=== PATIENT | male | born 1990 | race American Indian/Alaskan Native ===

== ENCOUNTER 2017-05-17 16:07 | Inpatient (IN) | payer MEDICAID ==
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
--- NOTE | 2017-05-17 17:53 | RAD ---
HISTORY: pes eval COMPARISON: None available. TECHNIQUE: Chest, one view. FINDINGS: Examination limited by patient obliquity. LUNGS: No focal consolidation. Please note that chest x-ray has limited sensitivity for the detection of pulmonary masses. PLEURA: No significant pleural effusion identified. No definite pneumothorax . CARDIOVASCULAR: The cardiomediastinal silhouette appears within normal limits of size. OSSEOUS STRUCTURES: No acute osseous abnormality identified. VISUALIZED UPPER ABDOMEN: Unremarkable. OTHER FINDINGS: None. IMPRESSION: No focal consolidation, significant pleural effusion, or definite pneumothorax identified.
[2017-05-17 18:28] LABS: URINE BILIRUBIN NEGATIVE (NEGATIVE); URINE BLOOD SMALL (NEGATIVE); URINE GLUCOSE (UA) NEGATIVE (NEGATIVE); URINE KETONE NEGATIVE (NEGATIVE); URINE LEUKOCYTE ESTERASE NEGATIVE Leu/uL (NEGATIVE); URINE PROTEIN TRACE mg/dL (<30 mg/dL)
[2017-05-17 18:29] LABS: BASO # 0.03 K/mm3 (0.0-2.0); BASO % 0.5 % (0.0-3.0); EOS # 0.1 (0.0-0.7); EOS % 0.8 % (1.5-5.0); GRAN # 4.08 (1.4-6.5); GRAN % 68.5 % (50.0-68.0); HEMATOCRIT 40.2 % (42.0-52.0); LYMPH # 1.6 (1.2-3.4); LYMPH % 26.2 % (22.0-35.0); MEAN CELL VOLUME 94.1 fl (80.0-105.0); MEAN CORPUSCULAR HEMOGLOBIN 32.1 pg (25.0-35.0); MEAN CORPUSCULAR HGB CONC 34.1 g/dl (31.0-37.0); MEAN PLATELET VOLUME 11.4 fl (7.0-11.0); MONO # 0.2 (0.1-0.6); RED CELL DISTRIBUTION WIDTH 12.5 % (11.5-14.5)
[2017-05-17 18:34] LABS: ALB/GLOB RATIO 1.3 (1.1-1.8); ALKALINE PHOSPHATASE 55 U/L (38-126); ALT/SGPT 29 U/L (7-56); AST/SGOT 30 U/L (17-59); BILIRUBIN,TOTAL 0.6 mg/dL (0.2-1.3); BLOOD UREA NITROGEN 13 mg/dL (7-21); CALCIUM 9.1 mg/dL (8.4-10.5); CARBON DIOXIDE 25 mmol/L (21-33); CHLORIDE 107 mmol/L (98-107); GFR AFRICAN-AMERICAN > 60; GLUCOSE,RANDOM 85 mg/dL (70-110); POTASSIUM 3.1 mmol/L (3.6-5.0); SODIUM 144 mmol/L (132-148); TOTAL PROTEIN 7.8 g/dL (5.8-8.3)
[2017-05-17 18:35] LABS: URINE APPEARANCE CLEAR (CLEAR); URINE COLOR YELLOW (YELLOW)
[2017-05-17 19:37] LABS: URINE BACTERIA FEW (NEG); URINE WBC 0 - 2 /hpf (0-6)
--- NOTE | 2017-05-17 19:44 | CARD ---
APPROVED REPORT EKG Measurement Heart [id number] <Conclusion> Normal sinus rhythm Possible Left atrial enlargement Rightward axis Left ventricular hypertrophy with QRS widening T wave abnormality, consider anterior ischemia Abnormal ECG
[2017-05-17] MEDS ORDERED: Potassium Chloride 20 mEq ER Tab PO STA (22:16)
--- NOTE | 2017-05-18 01:36 | ED PDOC ---
Physical Exam Vital Signs Reviewed: Yes Vital Signs Temp Pulse Resp BP Pulse Ox 05/17/17 23:45 86 18 141/68 96 05/17/17 20:25 64 18 118/78 98 05/17/17 18:09 97.4 F L 70 18 124/84 97 Temperature: Afebrile Blood Pressure: Normal Pulse: Regular Respiratory Rate: Normal Appearance: Positive for: Comfortable Pain Distress: None Mental Status: Positive for: Agitated, other (alert) Medical Decision Making ED Course and Treatment: 05/18/17 01:36 Pending PES evaluation with Dr. Pablo in the morning. - Lab Interpretations Lab Results: 05/17/17 17:57 05/17/17 17:57 Lab Results 05/17/17 18:05: Urine Opiates Screen Negative, Urine Methadone Screen Negative, Ur Barbiturates Screen Negative, Ur Phencyclidine Scrn No result, Ur Amphetamines Screen Negative, U Benzodiazepines Scrn Negative, U Oth Cocaine Metabols Negative, U Cannabinoids Screen Positive H 05/17/17 18:05: Urine Color Yellow, Urine Appearance Clear, Urine pH 6.0, Ur Specific [place] 1.010, Urine Protein Trace H, Urine Glucose (UA) Negative, Urine Ketones Negative, Urine Blood Small H, Urine Nitrate Negative, Urine Bilirubin Negative, Urine Urobilinogen 1.0 H, Ur Leukocyte Esterase Negative, Urine RBC 5 - 10, Urine WBC 0 - 2, Ur Epithelial Cells None, Urine Bacteria Few 05/17/17 17:57: Alcohol, Quantitative 108 H 05/17/17 17:57: Salicylates < 1 L, Acetaminophen < 10.0 L 05/17/17 17:57: Sodium 144, Potassium 3.1 L, Chloride 107, Carbon Dioxide 25, Anion Gap 15, BUN 13, Creatinine 0.9, Est GFR ( Amer) > 60, Est GFR (Non- Af Amer) > 60, Random Glucose 85, Calcium 9.1, Total Bilirubin 0.6, AST 30, ALT 29, Alkaline Phosphatase 55, Total Protein 7.8, Albumin 4.3, Globulin 3.4, Albumin/Globulin Ratio 1.3 05/17/17 17:57: WBC 6.0, RBC 4.27, Hgb 13.7 L, Hct 40.2 L, MCV 94.1, MCH 32.1, MCHC 34.1, RDW 12.5, Plt Count 178, MPV 11.4 H, Gran % 68.5 H, Lymph % (Auto) 26.2, [place] % (Auto) 4.0, Eos % (Auto) 0.8 L, Baso % (Auto) 0.5, Gran # 4.08, Lymph # 1.6, [place] # 0.2, Eos # 0.1, Baso # 0.03 I have reviewed the lab results: Yes - RAD Interpretation Radiology Orders: 05/17/17 17:10 CHEST PORTABLE [RAD] Stat - Medication Orders Current Medication Orders: Discontinued Medications Potassium Chloride (K-Dur 20 Meq Er Tab) 40 meq PO STAT STA Stop: 05/17/17 22:17 Ziprasidone (Geodon Inj) 20 mg IM STAT STA PRN Reason: Protocol Stop: 05/17/17 16:43 Last Admin: 05/17/17 16:50 Dose: 20 mg IM Administration Charges Document 05/17/17 16:50 SF (Rec: 05/17/17 17:13 SF [id number]) Injection Site MAR Injection Site Left Vastus Lateralis Charges for Administration # of IM Administrations 1 - Scribe Statement The provider has reviewed the documentation as recorded by the Lurdes Ndiaye Provider Scribe Attestation: All medical record entries made by the Scribe were at my direction and personally dictated by me. I have reviewed the chart and agree that the record accurately reflects my personal performance of the history, physical exam, medical decision making, and the department course for this patient. I have also personally directed, reviewed, and agree with the discharge instructions and disposition. Disposition/Present on Arrival - Present on Arrival Any Indicators Present on Arrival: No History of DVT/PE: No History of Uncontrolled Diabetes: No Urinary Catheter: No History of Decub. Ulcer: No History Surgical Site Infection Following: None - Disposition Referrals: [facility], [Primary Care Provider] - Follow up with primary Forms: MedWhat (Citizen Of [place])
--- NOTE | 2017-05-18 07:33 | ED PDOC ---
Physical Exam Vital Signs Reviewed: Yes Vital Signs Temp Pulse Resp BP Pulse Ox 05/18/17 06:09 75 16 149/82 96 05/18/17 04:25 74 16 124/67 97 05/18/17 01:41 88 16 134/68 98 05/17/17 23:45 86 18 141/68 96 05/17/17 20:25 64 18 118/78 98 05/17/17 18:09 97.4 F L 70 18 124/84 97 Temperature: Afebrile Blood Pressure: Normal Pulse: Regular Respiratory Rate: Normal Appearance: Positive for: Well-Appearing Pain Distress: None Mental Status: Positive for: Alert and Oriented X 3 Medical Decision Making ED Course and Treatment: 05/18/17 07:25 Patient transferred to vt by Dr. Ahumada. Currently pending psychiatric evaluation. 05/18/17 9:[address] Woodward to f/u psych evaluation. - Lab Interpretations Lab Results: 05/17/17 17:57 05/17/17 17:57 Lab Results 05/17/17 18:05: Urine Opiates Screen Negative, Urine Methadone Screen Negative, Ur Barbiturates Screen Negative, Ur Phencyclidine Scrn No result, Ur Amphetamines Screen Negative, U Benzodiazepines Scrn Negative, U Oth Cocaine Metabols Negative, U Cannabinoids Screen Positive H 05/17/17 18:05: Urine Color Yellow, Urine Appearance Clear, Urine pH 6.0, Ur Specific [place] 1.010, Urine Protein Trace H, Urine Glucose (UA) Negative, Urine Ketones Negative, Urine Blood Small H, Urine Nitrate Negative, Urine Bilirubin Negative, Urine Urobilinogen 1.0 H, Ur Leukocyte Esterase Negative, Urine RBC 5 - 10, Urine WBC 0 - 2, Ur Epithelial Cells None, Urine Bacteria Few 05/17/17 17:57: Alcohol, Quantitative 108 H 05/17/17 17:57: Salicylates < 1 L, Acetaminophen < 10.0 L 05/17/17 17:57: Sodium 144, Potassium 3.1 L, Chloride 107, Carbon Dioxide 25, Anion Gap 15, BUN 13, Creatinine 0.9, Est GFR ( Amer) > 60, Est GFR (Non- Af Amer) > 60, Random Glucose 85, Calcium 9.1, Total Bilirubin 0.6, AST 30, ALT 29, Alkaline Phosphatase 55, Total Protein 7.8, Albumin 4.3, Globulin 3.4, Albumin/Globulin Ratio 1.3 05/17/17 17:57: WBC 6.0, RBC 4.27, Hgb 13.7 L, Hct 40.2 L, MCV 94.1, MCH 32.1, MCHC 34.1, RDW 12.5, Plt Count 178, MPV 11.4 H, Gran % 68.5 H, Lymph % (Auto) 26.2, [place] % (Auto) 4.0, Eos % (Auto) 0.8 L, Baso % (Auto) 0.5, Gran # 4.08, Lymph # 1.6, [place] # 0.2, Eos # 0.1, Baso # 0.03 - RAD Interpretation Radiology Orders: 05/17/17 17:10 CHEST PORTABLE [RAD] Stat - Medication Orders Current Medication Orders: Discontinued Medications Potassium Chloride (K-Dur 20 Meq Er Tab) 40 meq PO STAT STA Stop: 05/17/17 22:17 Last Admin: 05/18/17 02:37 Dose: Not Given Non-Admin Reason: Patient Refused Ziprasidone (Geodon Inj) 20 mg IM STAT STA PRN Reason: Protocol Stop: 05/17/17 16:43 Last Admin: 05/17/17 16:50 Dose: 20 mg IM Administration Charges Document 05/17/17 16:50 SF (Rec: 05/17/17 17:13 SF [id number]) Injection Site MAR Injection Site Left Vastus Lateralis Charges for Administration # of IM Administrations 1 - Scribe Statement The provider has reviewed the documentation as recorded by the Lurdes Dozier Provider Scribe Attestation: All medical record entries made by the Lurdes were at my direction and personally dictated by me. I have reviewed the chart and agree that the record accurately reflects my personal performance of the history, physical exam, medical decision making, and the department course for this patient. I have also personally directed, reviewed, and agree with the discharge instructions and disposition. Disposition/Present on Arrival - Present on Arrival Any Indicators Present on Arrival: No History of DVT/PE: No History of Uncontrolled Diabetes: No Urinary Catheter: No History of Decub. Ulcer: No History Surgical Site Infection Following: None - Disposition Have Diagnosis and Disposition been Completed?: No Diagnosis: Psychiatric care Disposition Time: 09:00 Patient Problems: Current Active Problems Problem Status Onset Psychiatric care Acute Condition: GOOD
[2017-05-18 11:05] VITALS: O2SAT 99
[2017-05-18] MEDS ORDERED: Influenza Vaccine 60 mcg/0.5 mL SYR (4YR UP) IM ONE (14:09)
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
--- NOTE | 2017-05-18 15:56 | PCM.BM ---
<Dwight Campo - Last Filed: 05/18/17 15:52> Treatment Plan Problems - Problems identified on initial assessmt Altered Thought Process Date Initiated: 05/18/17 Time Initiated: 15:53 Assessment reference: NA Status: Active Priority: 1 Ineffective Coping Date Initiated: 05/18/17 Time Initiated: 15:54 Assessment reference: NA Status: Active Priority: 2 Treatment assets and liabiliti Patient Assests: cooperative, ADL independent, good interpersonal skills Patient Liabilities: financial problems, poor support system, other (homeless) - Milieu Protocol Maintain good personal hygiene: daily Encourage regular showers, daily Remind patient to perform daily oral care Conduct patient checks and document Observation sheet: Q15 minutes Maintain personal safety: every shift Educate patient to report safety concerns to staff, every shift Monitor environment for contraband/sharps Medication safety: Monitor for expected outcome, potential side effects: every shift, Assess barriers to learning: every shift, Assess readiness for medication education: every shift Discharge/Continuing Care - Education Needs Education Needs: Patient Medication, Patient Diagnosis/Disease Process, Patient Coping Skills, Patient Anger Management skills, Patient Placement options, Patient Community resources, Patient Health Practices/Safety, Patient Aftercare Safety Plan - Discharge Discharge Criteria: Free of Suicidal thoughts, Free of Homicidal thoughts <Luci Becker - Last Filed: 05/18/17 16:29> Family Contact Family involvement: Famliy/SO not involved Family contact: Patient declines to allow family contact at present <Astrid Pablo - Last Filed: 05/19/17 16:32> - Diagnosis (1) Unspecified psychosis Status: Suspected Interventions: 05/19/17 16:31 Psychoeducation/psychotherapy Psychopharmacology/adjustment of medications as needed/ monitoring possible side effects Evaluate pt on daily basis Compliance with medications and follow up appointments Long acting medication if pt is noncompliant with pill form Suicide and homicide risk assessment and prevention, coping strategies, safety plan Relapse prevention Reduction of symptoms Improve functional status Possible assertive community treatment Cognitive behavioral therapy Family involvement Possible social skill training as outpatient (2) Cannabis abuse Status: Acute Interventions: 05/19/17 16:32 Monitoring withdrawal symptoms Medical detoxification Pharmacotherapy for alcohol/benzos/opioid dependence Maintaining sobriety Relapse prevention Possible rehabilitation Motivational interviewing 12-step programs: AA meetings
--- NOTE | 2017-05-18 17:54 | ED PDOC ---
Physical Exam Vital Signs Temp Pulse Resp BP Pulse Ox 05/18/17 11:04 98.0 F 82 18 132/67 99 05/18/17 10:00 84 18 130/71 97 05/18/17 07:45 98.5 F 84 16 133/83 96 05/18/17 06:09 75 16 149/82 96 05/18/17 04:25 74 16 124/67 97 05/18/17 01:41 88 16 134/68 98 05/17/17 23:45 86 18 141/68 96 05/17/17 20:25 64 18 118/78 98 05/17/17 18:09 97.4 F L 70 18 124/84 97 Medical Decision Making ED Course and Treatment: Patient care transferred to tn, pending psychiatric evaluation. Patient to be admitted to [facility] as per PES worker. Patient medically cleared. - Lab Interpretations Lab Results: 05/17/17 17:57 05/17/17 17:57 Lab Results 05/17/17 18:05: Urine Opiates Screen Negative, Urine Methadone Screen Negative, Ur Barbiturates Screen Negative, Ur Phencyclidine Scrn No result, Ur Amphetamines Screen Negative, U Benzodiazepines Scrn Negative, U Oth Cocaine Metabols Negative, U Cannabinoids Screen Positive H 05/17/17 18:05: Urine Color Yellow, Urine Appearance Clear, Urine pH 6.0, Ur Specific [place] 1.010, Urine Protein Trace H, Urine Glucose (UA) Negative, Urine Ketones Negative, Urine Blood Small H, Urine Nitrate Negative, Urine Bilirubin Negative, Urine Urobilinogen 1.0 H, Ur Leukocyte Esterase Negative, Urine RBC 5 - 10, Urine WBC 0 - 2, Ur Epithelial Cells None, Urine Bacteria Few 05/17/17 17:57: Alcohol, Quantitative 108 H 05/17/17 17:57: Salicylates < 1 L, Acetaminophen < 10.0 L 05/17/17 17:57: Sodium 144, Potassium 3.1 L, Chloride 107, Carbon Dioxide 25, Anion Gap 15, BUN 13, Creatinine 0.9, Est GFR ( Amer) > 60, Est GFR (Non- Af Amer) > 60, Random Glucose 85, Calcium 9.1, Total Bilirubin 0.6, AST 30, ALT 29, Alkaline Phosphatase 55, Total Protein 7.8, Albumin 4.3, Globulin 3.4, Albumin/Globulin Ratio 1.3 11/28/17 17:57: WBC 6.0, RBC 4.27, Hgb 13.7 L, Hct 40.2 L, MCV 94.1, MCH 32.1, MCHC 34.1, RDW 12.5, Plt Count 178, MPV 11.4 H, Gran % 68.5 H, Lymph % (Auto) 26.2, [place] % (Auto) 4.0, Eos % (Auto) 0.8 L, Baso % (Auto) 0.5, Gran # 4.08, Lymph # 1.6, [place] # 0.2, Eos # 0.1, Baso # 0.03 - RAD Interpretation Radiology Orders: 05/17/17 17:10 CHEST PORTABLE [RAD] Stat - Medication Orders Current Medication Orders: Folic Acid (Folic Acid) 1 mg PO DAILY [facility] Last Admin: 05/18/17 14:56 Dose: 1 mg Multivitamins (Thera Tab) 1 tab PO 0800 [facility] Nicotine (Nicoderm Cq) 1 patch TD DAILY [facility] Last Admin: 05/18/17 14:15 Dose: 1 patch MAR Transdermal Patch Site Document 05/18/17 14:15 DC (Rec: 05/18/17 16:57 DC [id number]) Transdermal Patch Site Transdermal Patch Site Left Shoulder Thiamine HCl (Vitamin B1 Tab) 100 mg PO DAILY [facility] Last Admin: 05/18/17 14:56 Dose: 100 mg Trazodone HCl (Desyrel) 50 mg PO HS [facility] Ziprasidone (Geodon Inj) 20 mg IM Q6H PRN; Protocol PRN Reason: Agitation Discontinued Medications Potassium Chloride (K-Dur 20 Meq Er Tab) 40 meq PO STAT STA Stop: 05/17/17 22:17 Last Admin: 05/18/17 02:37 Dose: Not Given Non-Admin Reason: Patient Refused Ziprasidone (Geodon Inj) 20 mg IM STAT STA PRN Reason: Protocol Stop: 05/17/17 16:43 Last Admin: 05/17/17 16:50 Dose: 20 mg IM Administration Charges Document 05/17/17 16:50 SF (Rec: 05/17/17 17:13 SF [id number]) Injection Site MAR Injection Site Left Vastus Lateralis Charges for Administration # of IM Administrations 1 Disposition/Present on Arrival - Present on Arrival Any Indicators Present on Arrival: No History of DVT/PE: No History of Uncontrolled Diabetes: No Urinary Catheter: No History of Decub. Ulcer: No History Surgical Site Infection Following: None - Disposition Have Diagnosis and Disposition been Completed?: Yes Diagnosis: Psychiatric care Disposition: HOSPITALIZED Disposition Time: 09:00 Patient Problems: Current Active Problems Problem Status Onset Psychiatric care Acute Unspecified psychosis Acute Cannabis abuse Acute Condition: STABLE
[2017-05-18 19:46] VITALS: BMI 17.9
[2017-05-19 08:23] LABS: CHOLESTEROL 164 mg/dL (130-200); GLUCOSE,FASTING 93 mg/dL (65-110)
[2017-05-19 09:13] LABS: THYROID STIMULATING HORMONE 0.35 mIU/mL (0.46-4.68)
[2017-05-19] MEDS: Multivitamin Therapeutic Tab PO SCH (09:23)
[2017-05-19] MEDS ORDERED: Potassium Chloride 20 mEq ER Tab PO ONE (10:23)
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
--- NOTE | 2017-05-19 16:39 | PCM.PYCHPN ---
Psychiatric Progress Note - Psychiatric Progress Note Patient seen today, length of contact: 30min Patient Chief Complaint: "I am not good in my head" Medical Problems: none Diagnostic Results: 05/17/17 17:57 05/19/17 11:58 Lab Results 05/19/17 11:58: Potassium 4.1 05/19/17 07:45: Free T4 1.00, TSH 3rd Generation 0.35 L 05/19/17 07:45: Fasting Glucose 93, Triglycerides 74, Cholesterol 164, LDL Cholesterol Direct 104, HDL Cholesterol 42 05/17/17 18:05: Urine Opiates Screen Negative, Urine Methadone Screen Negative, Ur Barbiturates Screen Negative, Ur Phencyclidine Scrn No result, Ur Amphetamines Screen Negative, U Benzodiazepines Scrn Negative, U Oth Cocaine Metabols Negative, U Cannabinoids Screen Positive H 05/17/17 18:05: Urine Color Yellow, Urine Appearance Clear, Urine pH 6.0, Ur Specific [place] 1.010, Urine Protein Trace H, Urine Glucose (UA) Negative, Urine Ketones Negative, Urine Blood Small H, Urine Nitrate Negative, Urine Bilirubin Negative, Urine Urobilinogen 1.0 H, Ur Leukocyte Esterase Negative, Urine RBC 5 - 10, Urine WBC 0 - 2, Ur Epithelial Cells None, Urine Bacteria Few 05/17/17 17:57: Alcohol, Quantitative 108 H 05/17/17 17:57: Salicylates < 1 L, Acetaminophen < 10.0 L 05/17/17 17:57: Sodium 144, Potassium 3.1 L, Chloride 107, Carbon Dioxide 25, Anion Gap 15, BUN 13, Creatinine 0.9, Est GFR ( Amer) > 60, Est GFR (Non- Af Amer) > 60, Random Glucose 85, Calcium 9.1, Total Bilirubin 0.6, AST 30, ALT 29, Alkaline Phosphatase 55, Total Protein 7.8, Albumin 4.3, Globulin 3.4, Albumin/Globulin Ratio 1.3 05/17/17 17:57: WBC 6.0, RBC 4.27, Hgb 13.7 L, Hct 40.2 L, MCV 94.1, MCH 32.1, MCHC 34.1, RDW 12.5, Plt Count 178, MPV 11.4 H, Gran % 68.5 H, Lymph % (Auto) 26.2, [place] % (Auto) 4.0, Eos % (Auto) 0.8 L, Baso % (Auto) 0.5, Gran # 4.08, Lymph # 1.6, [place] # 0.2, Eos # 0.1, Baso # 0.03 Vital Signs Temp Pulse Resp BP Pulse Ox 05/19/17 06:56 98.1 F 71 19 124/76 99 05/18/17 16:00 60 140/80 05/18/17 11:04 98.0 F 82 18 132/67 99 05/18/17 10:00 84 18 130/71 97 05/18/17 07:45 98.5 F 84 16 133/83 96 05/18/17 06:09 75 16 149/82 96 05/18/17 04:25 74 16 124/67 97 05/18/17 01:41 88 16 134/68 98 05/17/17 23:45 86 18 141/68 96 05/17/17 20:25 64 18 118/78 98 05/17/17 18:09 97.4 F L 70 18 124/84 97 DSM 5 Symptoms Update: shortly patient is 27 year old -[place] male, 1 previous psychiatric admission to this unit, patient claiming multiple suicidal attempts, not known history of true suicidal attempts, patient has history of cannabis abuse and dependence as well as alcohol abuse, chronic noncompliance with her medications as well as follow-up appointments, patient does not work, homeless, no family support, patient was brought by police for evaluation of disorganized as well as agitated behavior in the community, patient was in restraint in the emergency room, needed to be medicated, at the morning time patient was offered admission patient was in agreement with that plan. Patient was seen at the TV room, pt is dramatic, was shaking but only when this commercial lines underwriter talked to him, earlier, was watching TV without any distress. pt said "I am not good in my head", was pointing towards his forehead. pt reported that he hears voices, but pt does not appear to be internally preoccupied. as per staff pt is compliant with unit rules and regulations. no agitation or aggression Mental status examination: Patient presented to have poor personal hygiene, good ADLs, intermittent eye contact, patient seems to be restless, speech was overproductive, but not pressured. Mood described: "Not good", affect was reactive, mood incongruent, thought processes circumstantial, thought content: Patient reported auditory hallucinations, but patient did not present to be psychotic, patient reported that he wants to harm himself, denied thoughts of harming others, aside and judgment are limited impulses are unpredictable. Impression: substance induced psychosis cannabis abuse alcohol abuse/dependence? r/o malingering treatment plan: Milieu/structure/supportive therapy Medical consult appreciated, see medical team note for more detailed info SW consultation for discharge plan and social issues multivitamins, thiamine, folic acid When necessary medication for possible agitation Trazodone at the nighttime as needed for insomnia Med management Family involvement Follow up on labs Will monitor closely SW evaluation for d/c planning Pt was educated about risk/benefits and alternatives of medications, coping strategies (safety plan, suicide prevention), relapse prevention, importance of follow up with psychiatrist and therapist, stay away from drugs/alcohol/smoking Medication Change: Yes Medical Record Reviewed: Yes Consults ordered or reviewed: med consult appreciated Mental Status Examination - Homicidal Ideation Homicidal Ideation: No Goal/Treatment Plan - Goal/Treatment Plan Need for Continued Stay: Remain at risks for inpatient hospitalization, Severe depression anxiety, Discharge may exacerbated symptoms, Severe functional impairment Estimated Date of D/C: 05/21/17
[2017-05-20] MEDS: Multivitamin Therapeutic Tab PO SCH (09:13)
--- NOTE | 2017-05-20 13:01 | PCM.PYCHPN ---
Psychiatric Progress Note - Psychiatric Progress Note Patient seen today, length of contact: 30min Patient Chief Complaint: "I am fine " Medical Problems: none Diagnostic Results: 05/17/17 17:57 05/19/17 11:58 Lab Results 05/19/17 11:58: Potassium 4.1 05/19/17 07:45: Free T4 1.00, TSH 3rd Generation 0.35 L 05/19/17 07:45: Fasting Glucose 93, Triglycerides 74, Cholesterol 164, LDL Cholesterol Direct 104, HDL Cholesterol 42 05/17/17 18:05: Urine Opiates Screen Negative, Urine Methadone Screen Negative, Ur Barbiturates Screen Negative, Ur Phencyclidine Scrn No result, Ur Amphetamines Screen Negative, U Benzodiazepines Scrn Negative, U Oth Cocaine Metabols Negative, U Cannabinoids Screen Positive H 05/17/17 18:05: Urine Color Yellow, Urine Appearance Clear, Urine pH 6.0, Ur Specific [place] 1.010, Urine Protein Trace H, Urine Glucose (UA) Negative, Urine Ketones Negative, Urine Blood Small H, Urine Nitrate Negative, Urine Bilirubin Negative, Urine Urobilinogen 1.0 H, Ur Leukocyte Esterase Negative, Urine RBC 5 - 10, Urine WBC 0 - 2, Ur Epithelial Cells None, Urine Bacteria Few 05/17/17 17:57: Alcohol, Quantitative 108 H 05/17/17 17:57: Salicylates < 1 L, Acetaminophen < 10.0 L 05/17/17 17:57: Sodium 144, Potassium 3.1 L, Chloride 107, Carbon Dioxide 25, Anion Gap 15, BUN 13, Creatinine 0.9, Est GFR ( Amer) > 60, Est GFR (Non- Af Amer) > 60, Random Glucose 85, Calcium 9.1, Total Bilirubin 0.6, AST 30, ALT 29, Alkaline Phosphatase 55, Total Protein 7.8, Albumin 4.3, Globulin 3.4, Albumin/Globulin Ratio 1.3 05/17/17 17:57: WBC 6.0, RBC 4.27, Hgb 13.7 L, Hct 40.2 L, MCV 94.1, MCH 32.1, MCHC 34.1, RDW 12.5, Plt Count 178, MPV 11.4 H, Gran % 68.5 H, Lymph % (Auto) 26.2, [place] % (Auto) 4.0, Eos % (Auto) 0.8 L, Baso % (Auto) 0.5, Gran # 4.08, Lymph # 1.6, [place] # 0.2, Eos # 0.1, Baso # 0.03 Vital Signs Temp Pulse Resp BP Pulse Ox 05/19/17 06:56 98.1 F 71 19 124/76 99 05/18/17 16:00 60 140/80 05/18/17 11:04 98.0 F 82 18 132/67 99 05/18/17 10:00 84 18 130/71 97 05/18/17 07:45 98.5 F 84 16 133/83 96 05/18/17 06:09 75 16 149/82 96 05/18/17 04:25 74 16 124/67 97 05/18/17 01:41 88 16 134/68 98 05/17/17 23:45 86 18 141/68 96 05/17/17 20:25 64 18 118/78 98 05/17/17 18:09 97.4 F L 70 18 124/84 97 DSM 5 Symptoms Update: shortly patient is 27 year old -[place] male, 1 previous psychiatric admission to this unit, patient claiming multiple suicidal attempts, not known history of true suicidal attempts, patient has history of cannabis abuse and dependence as well as alcohol abuse, chronic noncompliance with her medications as well as follow-up appointments, patient does not work, homeless, no family support, patient was brought by police for evaluation of disorganized as well as agitated behavior in the community, patient was in restraint in the emergency room, needed to be medicated, at the morning time patient was offered admission patient was in agreement with that plan. Patient was seen in his room with RN and PCP, pt is doing well, less dramatic, denied thoughts of harming self or others, asked for seroquel to be prescribed to him, pt was admitted mostly for observation, pt is in agreement with d/c plan tomorrow, all meds will be filled in [facility] pharmacy. will ask to see pt for second opinion, most likely pt is malingering. as per staff pt is compliant with unit rules and regulations, pt has good appetite and sleep. no agitation or aggression Mental status examination: Patient presented to have acceptable personal hygiene , good ADLs, intermittent eye contact, patient is more relaxed, speech was normal rate, tone quality and quantity. Mood described: "I am fine Dr.", affect was reactive, mood incongruent, thought processes circumstantial, thought content: Patient reported auditory hallucinations yesterday, but today denied, patient did not present to be psychotic, patient reported that he wants to harm himself, denied thoughts of harming others, aside and judgment are limited impulses are unpredictable. Impression: substance induced psychosis cannabis abuse alcohol abuse/dependence? r/o malingering treatment plan: pt scheduled for D/C tomorrow Milieu/structure/supportive therapy Medical consult appreciated, see medical team note for more detailed info SW consultation for discharge plan and social issues multivitamins, thiamine, folic acid When necessary medication for possible agitation Trazodone at the nighttime as needed for insomnia MVI, thiamine, folic acid seroquel 100mg po hs for mood stabilization Med management Family involvement Follow up on labs Will monitor closely SW evaluation for d/c planning Pt was educated about risk/benefits and alternatives of medications, coping strategies (safety plan, suicide prevention), relapse prevention, importance of follow up with psychiatrist and therapist, stay away from drugs/alcohol/smoking Medication Change: Yes (seroquel at hs. ) Medical Record Reviewed: Yes Consults ordered or reviewed: med consult appreciated Mental Status Examination - Homicidal Ideation Homicidal Ideation: No Goal/Treatment Plan - Goal/Treatment Plan Need for Continued Stay: Remain at risks for inpatient hospitalization, Severe depression anxiety, Discharge may exacerbated symptoms, Severe functional impairment Estimated Date of D/C: 05/21/17
[2017-05-21 07:03] VITALS: BP 133/89; PULSE 68; RESP 21; TEMP 98
[2017-05-21] MEDS: Multivitamin Therapeutic Tab PO SCH (09:41)
--- NOTE | 2017-05-21 10:39 | PCM.PYCHDC ---
Mental Status Examination - Mental Status Examination Orientation: Person, Place, Situation Memory: Intact Mood: Neutral, Other ("irritable") Affect: Other (labile) Speech: Appropriate Attention: WNL Concentration: WNL Association: WNL Fund of Knowledge: WNL Formal Thought Process: No Impairment Description of patient's judgement and insight: fair insight and judgement Suicidal Ideation: No Current Homicidal Ideation?: No Discharge Summary - Discharge Note Reason for Hospitalization: shortly patient is 27 year old -[place] Citizen male, 1 previous psychiatric admission to this unit, patient claiming multiple suicidal attempts, not known history of true suicidal attempts, patient has history of cannabis abuse and dependence as well as alcohol abuse, chronic noncompliance with her medications as well as follow-up appointments, patient does not work, homeless, no family support, patient was brought by police for evaluation of disorganized as well as agitated behavior in the community, patient was in restraint in the emergency room, needed to be medicated, at the morning time patient was offered admission patient was in agreement with that plan. Laboratory Data: Laboratory Tests 05/17/17 05/17/17 05/17/17 17:57 17:57 17:57 WBC 6.0 RBC 4.27 Hgb 13.7 L Hct 40.2 L MCV 94.1 MCH 32.1 MCHC 34.1 RDW 12.5 Plt Count 178 MPV 11.4 H Gran % 68.5 H Lymph % (Auto) 26.2 [place] % (Auto) 4.0 Eos % (Auto) 0.8 L Baso % (Auto) 0.5 Gran # 4.08 Lymph # 1.6 [place] # 0.2 Eos # 0.1 Baso # 0.03 Sodium 144 Potassium 3.1 L Chloride 107 Carbon Dioxide 25 Anion Gap 15 BUN 13 Creatinine 0.9 Est GFR ( Amer) > 60 Est GFR (Non-Af Amer) > 60 Random Glucose 85 Fasting Glucose Calcium 9.1 Total Bilirubin 0.6 AST 30 ALT 29 Alkaline Phosphatase 55 Total Protein 7.8 Albumin 4.3 Globulin 3.4 Albumin/Globulin Ratio 1.3 Triglycerides Cholesterol LDL Cholesterol Direct HDL Cholesterol Free T4 TSH 3rd Generation Urine Color Urine Appearance Urine pH Ur Specific [place] Urine Protein Urine Glucose (UA) Urine Ketones Urine Blood Urine Nitrate Urine Bilirubin Urine Urobilinogen Ur Leukocyte Esterase Urine RBC Urine WBC Ur Epithelial Cells Urine Bacteria Salicylates < 1 L Urine Opiates Screen Urine Methadone Screen Acetaminophen < 10.0 L Ur Barbiturates Screen Ur Phencyclidine Scrn Ur Amphetamines Screen U Benzodiazepines Scrn U Oth Cocaine Metabols U Cannabinoids Screen Alcohol, Quantitative RPR 05/17/17 05/17/17 05/17/17 17:57 18:05 18:05 WBC RBC Hgb Hct MCV MCH MCHC RDW Plt Count MPV Gran % Lymph % (Auto) [place] % (Auto) Eos % (Auto) Baso % (Auto) Gran # Lymph # [place] # Eos # Baso # Sodium Potassium Chloride Carbon Dioxide Anion Gap BUN Creatinine Est GFR ( Amer) Est GFR (Non-Af Amer) Random Glucose Fasting Glucose Calcium Total Bilirubin AST ALT Alkaline Phosphatase Total Protein Albumin Globulin Albumin/Globulin Ratio Triglycerides Cholesterol LDL Cholesterol Direct HDL Cholesterol Free T4 TSH 3rd Generation Urine Color Yellow Urine Appearance Clear Urine pH 6.0 Ur Specific [place] 1.010 Urine Protein Trace H Urine Glucose (UA) Negative Urine Ketones Negative Urine Blood Small H Urine Nitrate Negative Urine Bilirubin Negative Urine Urobilinogen 1.0 H Ur Leukocyte Esterase Negative Urine RBC 5 - 10 Urine WBC 0 - 2 Ur Epithelial Cells None Urine Bacteria Few Salicylates Urine Opiates Screen Negative Urine Methadone Screen Negative Acetaminophen Ur Barbiturates Screen Negative Ur Phencyclidine Scrn No result Ur Amphetamines Screen Negative U Benzodiazepines Scrn Negative U Oth Cocaine Metabols Negative U Cannabinoids Screen Positive H Alcohol, Quantitative 108 H RPR 05/19/17 05/19/17 05/19/17 07:45 07:45 07:45 WBC RBC Hgb Hct MCV MCH MCHC RDW Plt Count MPV Gran % Lymph % (Auto) [place] % (Auto) Eos % (Auto) Baso % (Auto) Gran # Lymph # [place] # Eos # Baso # Sodium Potassium Chloride Carbon Dioxide Anion Gap BUN Creatinine Est GFR ( Amer) Est GFR (Non-Af Amer) Random Glucose Fasting Glucose 93 Calcium Total Bilirubin AST ALT Alkaline Phosphatase Total Protein Albumin Globulin Albumin/Globulin Ratio Triglycerides 74 Cholesterol 164 LDL Cholesterol Direct 104 HDL Cholesterol 42 Free T4 1.00 TSH 3rd Generation 0.35 L Urine Color Urine Appearance Urine pH Ur Specific [place] Urine Protein Urine Glucose (UA) Urine Ketones Urine Blood Urine Nitrate Urine Bilirubin Urine Urobilinogen Ur Leukocyte Esterase Urine RBC Urine WBC Ur Epithelial Cells Urine Bacteria Salicylates Urine Opiates Screen Urine Methadone Screen Acetaminophen Ur Barbiturates Screen Ur Phencyclidine Scrn Ur Amphetamines Screen U Benzodiazepines Scrn U Oth Cocaine Metabols U Cannabinoids Screen Alcohol, Quantitative RPR Nonreactive 05/19/17 11:58 WBC RBC Hgb Hct MCV MCH MCHC RDW Plt Count MPV Gran % Lymph % (Auto) [place] % (Auto) Eos % (Auto) Baso % (Auto) Gran # Lymph # [place] # Eos # Baso # Sodium Potassium 4.1 Chloride Carbon Dioxide Anion Gap BUN Creatinine Est GFR ( Amer) Est GFR (Non-Af Amer) Random Glucose Fasting Glucose Calcium Total Bilirubin AST ALT Alkaline Phosphatase Total Protein Albumin Globulin Albumin/Globulin Ratio Triglycerides Cholesterol LDL Cholesterol Direct HDL Cholesterol Free T4 TSH 3rd Generation Urine Color Urine Appearance Urine pH Ur Specific [place] Urine Protein Urine Glucose (UA) Urine Ketones Urine Blood Urine Nitrate Urine Bilirubin Urine Urobilinogen Ur Leukocyte Esterase Urine RBC Urine WBC Ur Epithelial Cells Urine Bacteria Salicylates Urine Opiates Screen Urine Methadone Screen Acetaminophen Ur Barbiturates Screen Ur Phencyclidine Scrn Ur Amphetamines Screen U Benzodiazepines Scrn U Oth Cocaine Metabols U Cannabinoids Screen Alcohol, Quantitative RPR Consultations:: List each consultation separately and include: 1. Reason for request. 2. Findings. 3. Follow-up Consultations: Seen by Dr. Cotrez on 05/19/17 Summary of Hospital Course include:: 1. Description of specific treatment plan utilized for patients during their course of treatmen. 2. Summarize the time- course for resolution of acute symptoms and/or regressed behaviors. 3. Describe issues identified and worked on during hospitalization. 4. Describe medication utilized. 5. Describe medical problems identified and treated. 6. Reassessment of suicide risk Summary of Hospital Course: PER DR. JONES 05/20/17 shortly patient is 27 year old -[place] Citizen male, 1 previous psychiatric admission to this unit, patient claiming multiple suicidal attempts, not known history of true suicidal attempts, patient has history of cannabis abuse and dependence as well as alcohol abuse, chronic noncompliance with her medications as well as follow-up appointments, patient does not work, homeless, no family support, patient was brought by police for evaluation of disorganized as well as agitated behavior in the community, patient was in restraint in the emergency room, needed to be medicated, at the morning time patient was offered admission patient was in agreement with that plan. Patient was seen in his room with KD and PCP, pt is doing well, less dramatic, denied thoughts of harming self or others, asked for seroquel to be prescribed to him, pt was admitted mostly for observation, pt is in agreement with d/c plan tomorrow, all meds will be filled in [facility] pharmacy. will ask to see pt for second opinion, most likely pt is malingering. as per staff pt is compliant with unit rules and regulations, pt has good appetite and sleep. no agitation or aggression Mental status examination: Patient presented to have acceptable personal hygiene , good ADLs, intermittent eye contact, patient is more relaxed, speech was normal rate, tone quality and quantity. Mood described: "I am fine ", affect was reactive, mood incongruent, thought processes circumstantial, thought content: Patient reported auditory hallucinations yesterday, but today denied, patient did not present to be psychotic, patient reported that he wants to harm himself, denied thoughts of harming others, aside and judgment are limited impulses are unpredictable. DISCHARGE NOTE PER DR. MIRAMONTES 05/21/17 I interviewed patient at bedside to assess continued stability for discharge. Patient is alert and well-oriented to month, year and circumstances. Grooming is adequate. Eye contact is good. Patient feels improved however he is unhappy and frustrated because sleep is still restless. Feels lack of sleep is making him tired and irritable. Staff notes indicate that he slept through the night. His thought process is organized and coherent. Patient appears well-related. He denies any suicidal thoughts or thoughts to harm others. Patient denies hallucinations and is not responding to internal stimuli. Patient feels comfortable with discharge today though would have preferred discharge on Tuesday due to his homeless status. Reports plan to go to social insurance analyst but then states that he may not go to social insurance analyst because he is being discharged today instead of Tuesday. I encourage him to follow up with plan to go to social insurance analyst. Patient denies any acute discomfort or pain. Delusions and paranoia were not elicited on day of discharge. By the end of our interaction he was thankful to me for my follow up with him today. Staff notes indicate that patient has been AOx3, calm, cooperative and pleasant. Attending groups and more interactive. Noted to be irritable at times but there haven't been any incidents of aggression or threats. Denied SI/HI or perceptual disturbance. - Final Diagnosis (DSM 5) Condition upon Discharge: FAIR DSM 5: Substance induced psychosis cannabis abuse alcohol abuse/dependence? r/o malingering Disposition: HOME/ ROUTINE Follow-up Treatment Plan: PER 05/20/17 13:03 - Social Work Progress Note by Sima Hooker Addendum entered and electronically signed by Sima Hooker LSW 05/20/17 14 :27: Vm message from Julius at [facility]. Pt has appointment on 05/25/17 at 9am. T/c to [facility]. S/w Prachi. Confirmed appointment. Obtained information about getting ID. Prachi [facility] [address] [place] [address]. Prescriptions/Medication Reconciliation: Folic Acid 1 mg PO DAILY #14 tab Multivitamin Therapeutic Tab [Thera Tab] 1 tab PO 0800 #14 tab Nicotine 21 mg/24 hr [Nicoderm Cq] 1 patch TD DAILY #14 patch QUEtiapine [Seroquel] 100 mg PO HS #14 tab Thiamine [Vitamin B1 Tab] 100 mg PO DAILY #14 tab traZODone [Desyrel] 50 mg PO HS #14 tab - Smoking Cessation Smoking Cessation Medication prescribed: Yes - Antipsychotic Medications Pt discharged on 2 or more routine antipsychotic medications: No
== END 2017-05-21 11:05 | disposition home or self-care (01) | DRG 748 ==
LOC: ED 16:07 → ERH 05-18 09:59 → PSYC 05-18 11:09
PROVIDERS: ADMIT Psychiatry & Neurology Psychiatry; ATTEND Psychiatry & Neurology Psychiatry
PROC: GZ3ZZZZ Medication Management (ICD-10-PCS; principal; 2017-05-18)
DX: F19.259 Other psychoactive substance dependence with psychoactive substance-induced psychotic disorder, unspecified (principal); F10.20 Alcohol dependence, uncomplicated; F12.20 Cannabis dependence, uncomplicated; Y90.5 Blood alcohol level of 100-119 mg/100 ml; F17.210 Nicotine dependence, cigarettes, uncomplicated; Z91.19 Patient's noncompliance with other medical treatment and regimen; Z91.14 Patient's other noncompliance with medication regimen; Z59.0 Homelessness

== ENCOUNTER 2017-12-28 14:54 | Inpatient (IN) | payer MEDICAID ==
[2017-12-28 14:54] VITALS: BMI 17.9
--- NOTE | 2017-12-28 15:15 | ED PDOC ---
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 Patient notes he was extremely agitated and under a lot of stress. Patient states he's "loosing it" and his "mind is in a billion places". Says he wants to harm himself but doesn't know how. Patient states he is looking for psychiatric help. Patient denies any fever, chills, chest pain, shortness of breath, nausea, vomiting, diarrhea, back pain, neck pain, headache , dizziness, or any other complaints. PMD: none Time/Duration: Prior to Arrival Symptom Course: Unchanged Activities at Onset: Light Context: Home Past Medical History - Provider Review Nursing Documentation Reviewed: Yes - Infectious Disease Hx of Infectious Diseases: None - Cardiac Hx Cardiac Disorders: No Hx Angina: No Hx Atrial Fibrillation: No Hx Cardiac Arrhythmia: No Hx Circulatory Problems: No Hx Congestive Heart Failure: No Hx CO: No Hx Heart Murmur: No Hx Heart Transplant: No Hx Hypertension: No Hx Hypotension: No Hx Internal Defibrillator: No Hx Mitral Valve Prolapse: No Hx Pacemaker: No Hx Peripheral Edema: No Hx Peripheral Vascular Disease: No - Pulmonary Hx Respiratory Disorders: No Hx Asthma: No Hx Bronchitis: No Hx Chronic Obstructive Pulmonary Disease (COPD): No Hx Emphysema: No Hx Lung Cancer: No Hx Pneumonia: No Hx Pulmonary Edema: No Hx Pulmonary Embolism: No Hx Respiratory Aspiration: No Hx Respiratory Tract Infection: No Hx Sleep Apnea: No Hx Tuberculosis: No - Neurological Hx Neurological Disorder: No Hx Alzheimer's Disease: No HX Cerebrovascular Accident: No Hx Dementia: No Hx Dizziness: No Hx Meningitis: No Hx Migraine: No Hx Multiple Sclerosis: No Hx Paralysis: No Hx Parkinson's Disease: No Hx Seizures: No Hx Syncope: No Hx Transient Ischemic Attacks (TIA): No Hx Vertigo: No - HEENT Hx HEENT Disorder: No Hx Cataracts: No Hx Deafness: No Hx Difficulty Chewing: No Hx Epistaxis: No Hx Glaucoma: No Hx Macular Degeneration: No - Renal Hx Renal Disorder: No Hx Dialysis: No Hx Kidney Stones: No Hx Neurogenic Bladder: No Hx Pyelonephritis: No Hx Renal Cancer: No Hx Renal Failure: No - Endocrine/Metabolic Hx Endocrine Disorders: No Hx Adrenal Cancer: No Hx Diabetes Insipidus: No Hx Diabetes Mellitus Type 1: No Hx Diabetes Mellitus Type 2: No Hx Hyperthyroidism: No Hx Hypothyroidism: No Hx Systemic Lupus Erythematosus: No - Hematological/Oncological Hx Blood Disorders: No Hx AIDS: No Hx Anemia: No Hx Blood Transfusions: No Hx Blood Transfusion Reaction: No Hx Bruising: No Hx Cancer: No Hx Chemotherapy: No Hx Cirrhosis: No Hx Gum Bleeding: No Hx Hemophilia: No Hx Hepatitis A: No Hx Hepatitis B: No Hx Hepatitis C: No Hx Leukemia: No Hx Metastasis: No Hx Shingles: No Hx Sickle Cell Disease: No Hx Unexplained Bleeding: No Hx von Willebrand's Disease: No - Integumentary Hx Dermatological Disorder: No Hx Basal Cell Carcinoma: No Hx Wong: No Hx Cellulitis: No Hx Eczema: No Hx Melanoma: No Hx Psoriasis: No Hx Squamous Cell Carcinoma: No - Musculoskeletal/Rheumatological Hx Musculoskeletal Disorders: No Hx Arthritis: No Hx Back Pain: No Hx Degenerative Joint Disease: No Hx Falls: No Hx Fractures: No Hx Gout: No Hx Herniated Disk: No Hx Myasthenia Gravis: No Hx Osteoarthritis: No Hx Osteomyelitis: No Hx Osteoporosis: No Hx Rhabdomyolysis: No Hx Rheumatoid Arthritis: No Hx Spinal Stenosis: No Hx Unsteady Gait: No - Gastrointestinal Hx Gastrointestinal Disorders: No Hx Bowel Surgery: No Hx Clostridium Difficile: No Hx Colitis: No Hx Colostomy: No Hx Constipation: No Hx Crohn's Disease: No Hx Diarrhea: No Hx Diverticulitis: No Hx Esophageal Varices: No Hx Fatty Liver Disease: No Hx Gall Bladder Disease: No Hx Gastritis: No Hx Gastroesophageal Reflux: No Hx Hemorrhoids: No Hx Ileostomy: No Hx Irritable Bowel: No Hx Liver Failure: No Hx Nausea: No Hx Pancreatitis: No HX Swallowing Problems: No Hx Vomiting: No - Genitourinary/Gynecological Hx Genitourinary Disorders: No Hx Bladder Cancer: No Hx Bladder Stone: No Hx Hematuria: No Hx Incontinence: No Hx Prostate Cancer: No Hx Prostate Problems: No Hx Reproductive Disorders: No Hx Sexually Transmitted Diseases: No Hx Urinary Tract Infection: No - Psychiatric Hx Depression: Yes Hx Substance Use: Yes - Surgical History Hx Abdominal Aortic Aneurysm Repair: No Hx Amputation: No Hx Angiogram: No Hx Angioplasty: No Hx Appendectomy: No Hx Arteriovenous Shunt: No Hx Arthroscopy: No Hx Bile Duct Stent: No Hx Breast Biopsy: No Hx Cataract Extraction: No Hx Cardiac Catheterization: No Hx Carotid Endarterectomy: No Hx Section: No Hx Cholecystectomy: No Hx Coronary Artery Bypass Graft: No Hx Coronary Stent: No Hx Dilation and Curettage: No Hx Eye Surgery: No Hx Femoral-Popliteal Bypass Graft: No Hx Gastric Bypass Surgery: No Hx Hysterectomy: No Hx Joint Replacement: No Hx Kidney Transplant: No Hx Liver Transplant: No Hx Mastectomy: No Hx Musculoskeletal Surgery: No Hx Open Heart Surgery: No Hx Open Reduction Internal Fixation: No Hx Orthopedic Surgery: No Hx Parathyroidectomy: No Hx Penile Implant: No Hx Pulmonary Surgery: No Hx Splenectomy: No Hx Thyroidectomy: No Hx Tonsillectomy: No Hx Tubal Ligation: No Hx Valve Replacement: No Hx Vascular Surgery: No Hx Vascular Access Device: No - Anesthesia Hx Anesthesia: No Hx Anesthesia Reactions: No Hx Malignant Hyperthermia: No Family/Social History - Physician Review Nursing Documentation Reviewed: Yes Family/Social History: Unknown Family HX Smoking Status: Never Smoked Hx Alcohol Use: Yes Hx Substance Use: Yes Allergies/Home Meds Allergies/Adverse Reactions: Allergies No Known Allergies Allergy (Verified 06/27/17 04:59) Review of Systems - Physician Review All systems were reviewed & negative as marked: Yes - Review of Systems Constitutional: Normal Eyes: Normal ENT: Normal Respiratory: Normal. absent: SOB, Cough Cardiovascular: Normal. absent: Chest Pain Gastrointestinal: Normal. absent: Abdominal Pain Genitourinary Male: Normal. absent: Dysuria, Frequency Musculoskeletal: Normal. absent: Back Pain, Neck Pain Skin: Normal. absent: Rash Neurological: Normal. absent: Headache, Dizziness Endocrine: Normal Hemo/Lymphatic: Normal Psychiatric: Suicidal Ideation, Other (Agitated; Homicidal ideation) Physical Exam Vital Signs Reviewed: Yes Vital Signs Temp Pulse Resp BP Pulse Ox 12/28/17 14:54 98.1 F 68 18 116/79 100 Temperature: Afebrile Blood Pressure: Normal Pulse: Regular Respiratory Rate: Normal Appearance: Positive for: Well-Appearing, Non-Toxic, Comfortable Pain Distress: None Mental Status: Positive for: Alert and Oriented X 3 - Systems Exam Head: Present: Atraumatic, Normocephalic Pupils: Present: PERRL Extroacular Muscles: Present: EOMI Conjunctiva: Present: Normal Mouth: Present: Moist Mucous Membranes Neck: Present: Normal Range of Motion. No: Meningeal Signs, MIDLINE TENDERNESS Respiratory/Chest: Present: Clear to Auscultation, Good Air Exchange. No: Respiratory Distress, Accessory Muscle Use Cardiovascular: Present: Regular Rate and Rhythm, Normal S1, S2. No: Murmurs Abdomen: No: Tenderness, Distention, Peritoneal Signs Back: Present: Normal Inspection. No: CVA Tenderness, Midline Tenderness, Paraspinal Tenderness Upper Extremity: Present: Normal Inspection. No: Cyanosis, Edema Lower Extremity: Present: Normal Inspection. No: Edema, CALF TENDERNESS Neurological: Present: GCS=15, CN II-XII Intact, Speech Normal Skin: Present: Warm, Dry, Normal Color. 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 DDx: r/o Major Depressive Disorder with Psych Features Plan: -- EKG -- Labs - Urinalysis -- [facility] Crisis Evaluation -- Reassess and disposition Progress Notes: 12/28/17 16:02 EKG: NSR at [address] elevations, nl intervals Patient is cleared medically for psych admission. Patient was evaluated by Elsie BRANDON, who discussed case with Dr. Astrid Pablo who will admit to Psych for r/o Major Depressive Disorder with Psych Features. Patient continues to be on a one to one. - RAD Interpretation Radiology Orders: 12/28/17 15:56 CXR [CHEST PORTABLE] [RAD] Stat - Medication Orders Current Medication Orders: Discontinued Medications Lorazepam (Ativan) 1 mg PO ONCE ONE PRN Reason: Protocol Stop: 12/28/17 15:21 - Scribe Statement The provider has reviewed the documentation as recorded by the Jagrutiibcj Thomas All medical record entries made by the Scribcj were at my direction and personally dictated by me. I have reviewed the chart and agree that the record accurately reflects my personal performance of the history, physical exam, medical decision making, and the department course for this patient. I have also personally directed, reviewed, and agree with the discharge instructions and disposition. Disposition/Present on Arrival - Present on Arrival Any Indicators Present on Arrival: No History of DVT/PE: No History of Uncontrolled Diabetes: No Urinary Catheter: No History Surgical Site Infection Following: None - Disposition Have Diagnosis and Disposition been Completed?: Yes Diagnosis: Psychiatric care, Major depressive disorder Disposition: HOSPITALIZED Disposition Time: 16:04 Patient Plan: Admission Condition: FAIR
[2017-12-28 16:10] LABS: BASO # 0.04 K/mm3 (0.0-2.0); BASO % 0.8 % (0.0-3.0); EOS # 0.1 (0.0-0.7); EOS % 1.7 % (1.5-5.0); GRAN # 3.21 (1.4-6.5); GRAN % 60.4 % (50.0-68.0); HEMOGLOBIN 13.4 g/dL (14.0-18.0); LYMPH # 1.7 (1.2-3.4); LYMPH % 31.8 % (22.0-35.0); MEAN CELL VOLUME 92.7 fl (80.0-105.0); MEAN CORPUSCULAR HEMOGLOBIN 31.5 pg (25.0-35.0); MEAN PLATELET VOLUME 10.6 fl (7.0-11.0); MONO # 0.3 (0.1-0.6); MONO % 5.3 % (1.0-6.0); RBC 4.25 10^6/uL (3.5-6.1); WHITE BLOOD COUNT 5.3 10^3/ul (4.5-11.0)
[2017-12-28 16:15] LABS: ALB/GLOB RATIO 1.3 (1.1-1.8); ALBUMIN 4.2 g/dL (3.0-4.8); ALT/SGPT 17 U/L (7-56); AST/SGOT 22 U/L (17-59); BLOOD UREA NITROGEN 15 mg/dL (7-21); CALCIUM 9.2 mg/dL (8.4-10.5); GFR AFRICAN-AMERICAN > 60; GFR NON-AFRICAN AMERICAN > 60
[2017-12-28 16:16] LABS: ACETAMINOPHEN < 10.0 ug/ml (10.0-20.0); SALICYLATE < 1 mg/dL (2.0-20.0)
--- NOTE | 2017-12-28 17:21 | RAD ---
Date of service: 12/28/2017 HISTORY: psych COMPARISON: Comparison chest 06/18/2017. FINDINGS: LUNGS: No active pulmonary disease. PLEURA: No significant pleural effusion identified, no pneumothorax apparent. CARDIOVASCULAR: Normal. OSSEOUS STRUCTURES: No significant abnormalities. VISUALIZED UPPER ABDOMEN: Normal. OTHER FINDINGS: None. IMPRESSION: No active disease.
[2017-12-28] MEDS ORDERED: Alum-Mag Hydrox-Simethicone Susp (30 mL) PO PRN (17:36)
[2017-12-28] MEDS ORDERED: Magnesium Hydroxide Susp 30 ml UD PO PRN (17:36)
--- NOTE | 2017-12-28 18:51 | PCM.BM ---
<BeenaRickoneyda - Last Filed: 12/28/17 18:47> Treatment Plan Problems - Problems identified on initial assessmt Depression Date Initiated: 12/28/17 Assessment reference: NA Status: Active Priority: 1 Suicidal Thoughs Date Initiated: 12/28/17 Assessment reference: NA Status: Active medication non-complaince Date Initiated: 12/28/17 Assessment reference: NA Status: Active Treatment assets and liabiliti Patient Assests: cooperative, ADL independent, physically healthy, negotiates basic needs, good interpersonal skills Patient Liabilities: live alone, financial problems, poor support system, substance abuse - Milieu Protocol Maintain good personal hygiene: daily Encourage regular showers, daily Remind patient to perform daily oral care, daily Assist patient to perform ADL's Maintain personal safety: every shift Educate patient to report safety concerns to staff, every shift Monitor environment for contraband/sharps Medication safety: Monitor for expected outcome, potential side effects: every shift, Assess barriers to learning: every shift, Assess readiness for medication education: every shift Family Contact Family involvement: No known Family/SO <Astrid Pablo - Last Filed: 12/29/17 14:04> - Diagnosis (1) Cannabis abuse Status: Acute Interventions: 12/29/17 14:08 Maintaining sobriety Relapse prevention Possible rehabilitation Motivational interviewing 12-step programs: AA meetings (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
--- NOTE | 2017-12-28 19:54 | CARD ---
APPROVED REPORT Date of service: 12/28/2017 EKG Measurement Heart [id number] <Conclusion> Normal sinus rhythm Possible Left atrial enlargement Borderline ECG
[2017-12-29 06:58] VITALS: RESP 20
[2017-12-29 08:19] LABS: GLUCOSE,FASTING 92 mg/dL (65-110); HDL CHOLESTEROL 41 mg/dL (29-60)
[2017-12-29 08:30] LABS: LDL CHOLESTEROL 85 mg/dL (0-129)
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
[2017-12-29 08:35] LABS: FREE T4 0.72 ng/dL (0.78-2.19)
[2017-12-30] MEDS: Multivitamin With Minerals Tab PO SCH (08:03)
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
--- NOTE | 2017-12-31 08:51 | PCM.PYCHPN ---
Psychiatric Progress Note - Psychiatric Progress Note Patient seen today, length of contact: 30 minutes Patient Chief Complaint: "depressed, anxious, kaplan" Problems Identified/Issues Discussed: I reviewed assessment and recent staff notes. Patient has been labile with periods of anxiety and oppositional behavior. Last night he had a tantrum because he felt his room was too warm and security had to be called because patient refused to get off the floor. Patient received Geodon and Ativan prns in the presence of security without further incident. Staff notes indicate that he has been guarded and isolative on the unit. Patient is superficially friendly with this provider when I meet with him at bedside. He admits to feeling depressed, anxious and kaplan. Didn't sleep well and requests initiation of seroquel to help with mood and sleep. He reports hearing auditory hallucinations of "chatter" which affected his sleep last night. His thought process is coherent without indication of perceptual disturbance. Patient denies any side effects or new discomfort or pain. Remains unpredictable. Diagnostic Results: Impulse control disorder Alcohol use disorder Cannabis use disorder -r/o anxiety disorder -r/o antisocial, schizoid personality traits -r/o malingering Medication Change: Yes (Seroquel was increased ) Medical Record Reviewed: Yes Mental Status Examination - Cognitive Function Orientation: Person, Place, Situation, Time Attention: WNL Concentration: WNL Association: WNL Fund of Knowledge: WNL - Mood Mood: Other (good) - Affect Affect: Broad (dramatic), Other (full) - Speech Speech: Appropriate - Formal Thought Process Formal Thought Process: No Impairment - Suicidal Ideation Suicidal Ideation: No - Homicidal Ideation Homicidal Ideation: No Goal/Treatment Plan - Goal/Treatment Plan Need for Continued Stay: Discharge may exacerbated symptoms, Failed transitioning Progress Toward Problem(s) and Goals/Treatment Plan: * c/w current tx and plan * No new weekend lab results thus far * Increased seroquel to 25 mg po bid and 150 mg po HS to help with mood lability and reported hallucinations * Vitals reviewed and noted below: Selected Entries 12/31/17 06:37 Temperature 98.2 F Pulse Rate 60 Respiratory 20 Rate Blood Pressure 140/95 H Estimated Date of D/C: 01/03/18
[2017-12-31] MEDS: Multivitamin With Minerals Tab PO SCH (09:17)
[2018-01-01] MEDS: Multivitamin With Minerals Tab PO SCH (08:42)
--- NOTE | 2018-01-01 08:54 | PCM.PYCHPN ---
Psychiatric Progress Note - Psychiatric Progress Note Patient seen today, length of contact: 30 minutes Patient Chief Complaint: "depressed, anxious, kaplan" Problems Identified/Issues Discussed: I reviewed recent staff notes. Patient was in better control yesterday and there were no major behavioral issues. Prior to the weekend patient was labile with periods of anxiety and oppositional behavior. On Tuesday night he had a tantrum because he felt his room was too warm and security had to be called because patient refused to get off the floor. Patient received Geodon and Ativan prns in the presence of security without further incident. Staff notes indicate that he has been guarded and isolative on the unit. Patient is superficially friendly with this provider when I meet with him at bedside again today. He admits to feeling depressed, anxious and kaplan without much change since increase of seroquel yesterday. Sleep was restless. He continues to report hearing auditory hallucinations of "chatter" which he says affect his sleep. His thought process is coherent without indication of perceptual disturbance. Patient denies any side effects or new discomfort or pain. Remains unpredictable. Diagnostic Results: Impulse control disorder Alcohol use disorder Cannabis use disorder -r/o anxiety disorder -r/o antisocial, schizoid personality traits -r/o malingering Medication Change: Yes (Increased seroquel) Medical Record Reviewed: Yes Mental Status Examination - Cognitive Function Orientation: Person, Place, Situation, Time Attention: WNL Concentration: WNL Association: WNL Fund of Knowledge: WNL - Mood Mood: Other ("kaplan, depressed, anxious, I can't sleep") - Affect Affect: Broad (dramatic), Other (labile) - Speech Speech: Appropriate - Formal Thought Process Formal Thought Process: No Impairment - Suicidal Ideation Suicidal Ideation: No - Homicidal Ideation Homicidal Ideation: No Goal/Treatment Plan - Goal/Treatment Plan Need for Continued Stay: Discharge may exacerbated symptoms, Failed transitioning Progress Toward Problem(s) and Goals/Treatment Plan: * c/w current tx and plan * No new weekend lab results * Increased seroquel to 05 mg po bid and 200 mg po HS ON 01/01/18 to help with mood lability and reported hallucinations * Vitals reviewed and noted below: Selected Entries 12/31/17 12/31/17 06:37 16:40 Temperature 98.2 F Pulse Rate 60 56 L Respiratory 20 Rate Blood Pressure 140/95 H 130/77 Estimated Date of D/C: 01/03/18
[2018-01-01 15:55] VITALS: O2SAT 65
[2018-01-02 07:31] VITALS: BP 114/70; PULSE 58; TEMP 96.8
[2018-01-02] MEDS: Multivitamin With Minerals Tab PO SCH (08:47)
--- NOTE | 2018-01-02 16:37 | CP.PCM.PCO ---
Addendum Addendum: 01/02/18 16:36 before disposition is made, pt needs to be seen by psychiatrist at ED because pt is malingering, providing inconsistent stories, antisocial behavior.
--- NOTE | 2018-01-03 09:43 | PCM.PYCHDC ---
Mental Status Examination - Mental Status Examination Orientation: Person, Place, Situation, Time Memory: Intact Mood: Neutral Affect: Constricted (earlier today patient was angry about his discharge) Speech: Appropriate Attention: WNL Concentration: WNL Association: WNL Fund of Knowledge: WNL Formal Thought Process: No Impairment, Other (patient claimed that his thoughts are not well organized but patient does not seem to be psychotic, does not respond to internal stimuli, does not appear to be paranoid) Description of patient's judgement and insight: Pt has improved insight into mental illness, for the past 5 days patient does not exceed that any aggressive or agitated behavior, patient brought himself into the hospital looking for help "to cool off". Psychotic Thoughts and Behaviors: Pt reported that he hears voices but it was his own thoughts, had difficulties to describe that thoughts, denied paranoid ideations, pt does not appear to be psychotic, and thought process is goal directed. Suicidal Ideation: No Current Homicidal Ideation?: No Plan: earlier patient was making terroristic threats, police was called, notified. At the time of discharge pt adamantly denied thoughts of harming self or others denied intent or plan. Discharge Summary - Discharge Note Reason for Hospitalization: patient was admitted to the psychiatric inpatient unit for evaluation and stabilization of possible homicidal and suicidal ideation. during this hospitalization patient does not exhibit agitated or aggressive behavior up until discharge day, when pt got to know that he will be discharged , started to act out. Psychiatric History (includes Medical, Family, Personal Hx): medication, therapy Laboratory Data: 12/28/17 15:53 12/28/17 15:53 Lab Results 12/29/17 07:30: RPR Nonreactive 12/29/17 07:30: Free T4 0.72 L, TSH 3rd Generation 0.23 L 12/29/17 07:30: Fasting Glucose 92, Triglycerides 102, Cholesterol 159, LDL Cholesterol Direct 85, HDL Cholesterol 41 12/28/17 15:53: Alcohol, Quantitative < 10 12/28/17 15:53: Salicylates < 1 L, Acetaminophen < 10.0 L 12/28/17 15:53: Sodium 142, Potassium 3.9, Chloride 107, Carbon Dioxide 27, Anion Gap 12, BUN 15, Creatinine 0.9, Est GFR ( Amer) > 60, Est GFR (Non- Af Amer) > 60, Random Glucose 87, Calcium 9.2, Magnesium 1.7, Total Bilirubin 0.7, AST 22, ALT 17, Alkaline Phosphatase 51, Total Protein 7.5, Albumin 4.2, Globulin 3.3, Albumin/Globulin Ratio 1.3 12/28/17 15:53: WBC 5.3, RBC 4.25, Hgb 13.4 L, Hct 39.4 L, MCV 92.7, MCH 31.5, MCHC 34.0, RDW 13.0, Plt Count 179, MPV 10.6, Gran % 60.4, Lymph % (Auto) 31.8, [place] % (Auto) 5.3, Eos % (Auto) 1.7, Baso % (Auto) 0.8, Gran # 3.21, Lymph # ( Auto) 1.7, [place] # (Auto) 0.3, Eos # (Auto) 0.1, Baso # (Auto) 0.04 Vital Signs Temp Pulse Pulse Resp BP Pulse Ox 01/02/18 07:30 96.8 F L 58 L 20 114/70 01/01/18 15:54 128/86 65 L 01/01/18 07:29 97.9 F 67 20 121/81 12/31/17 16:40 56 L 130/77 12/31/17 06:37 98.2 F 60 20 140/95 H 12/30/17 16:00 52 L 114/68 12/30/17 06:56 98.3 F 51 L 20 125/81 12/29/17 16:00 66 141/93 H 12/29/17 06:57 98.0 F 54 L 20 120/76 12/28/17 17:39 97.5 F L 60 60 18 142/55 L 12/28/17 16:47 98.1 F 65 18 120/75 100 12/28/17 14:54 98.1 F 68 18 116/79 100 Consultations:: List each consultation separately and include: 1. Reason for request. 2. Findings. 3. Follow-up Consultations: patient is in good physical health, does not require medical consultation. Summary of Hospital Course include:: 1. Description of specific treatment plan utilized for patients during their course of treatmen. 2. Summarize the time- course for resolution of acute symptoms and/or regressed behaviors. 3. Describe issues identified and worked on during hospitalization. 4. Describe medication utilized. 5. Describe medical problems identified and treated. 6. Reassessment of suicide risk Summary of Hospital Course: this pt is very well known to this unit. pt has tendency of providing inconsistent and conflicting information. pt has self reported h/o ?suicidal attempts, which never confirmed, ?chronic suicidal/homicidal ideation, homelessness, not following up with outpatient providers. first admission to the unit was 02/12/17-02/28/17 pt reported that he wanted to cut his wrists, but no cuts, pt went to the police station asking them to shoot him, pt also said that he tried to commit suicide by [place] the [place], pt said that he was saved by some teenagers, but pt was not brought to the ED, and teenagers did not call 911. pt also was inconsistent with the dates, years and months. after the first admission pt came to ED for for six times, all the times pt was discharged. pt refused to give consent for collateral information for all of his admissions. pt also has tendencies to sabotage his discharges and take drastic measures in order to prolong his hospitalization. Going back to the this admission/presentation. Patient was seen with internal grinding machine operator and medical students, patient presented with good personal hygiene, nice haircut, wears clean and bright clothing, patient was calm and corporative during my assessment, patient is very well known to this engineering technical writer from multiple psychiatric admissions, patient had tendency is to exaggerate of his symptoms, patient would make dramatic statement with no evidence. for example this admission pt has his own statements only, no police involvement, no coworker filed any complaints, no 911 was called. Pt claimed that he was swinging the hammer towards his coworker/boss, but no police involved. mood described as depressed for past 4 weeks, at times patient reported to feel "hopeless", patient denied any intent or plan to kill himself or to kill others , patient said "I do want to go to retirement, I want to stay in the hospital just cool off". patient reported that he has poor sleep, sleeps only 25 hours a week. Patient at times could hear his own voice, at times negative statement. Patient does not present to be psychotic, does not appear to be internally preoccupied or responding to internal stimuli. Patient reports that she smokes marijuana daily, at times he uses alcohol Patient was willing to be resumed on Seroquel, Remeron was discussed with the patient, multivitamins thiamine and folic acid will be initiated agree with internal grinding machine operator assessment. pt was observed at the unit for the past five days. during this hospitalization pt had good appetite and sleep, did not have any behavioral disturbances, compliance with medications was good. pt was on the following meds: folic acid, MVI, thiamine remeron for depression seroquel for mood stabilization pt tolerated meds well, no side effects observed or reported. AIMS 0, no EPS. as per staff and weekend report pt was not psychotic, looking for comfort and attention, socializing with others. during the weekend pt denied thoughts of harming self or others. pt was seen at the treatment team meeting this engineering technical writer discussed d/c plan, pt became very angry and said that he is not ready for discharge and "I expected to stay here till ", when was asked what will be changed on pt said that his aunt? will be back from the business trip and "I will be loved again, she is the only one who I have now", at the same time pt did not want to give a phone number for collateral information. pt was upset, was cursing at this engineering technical writer said "f...k you, f....k you all", after that pt started to make terroristic threats, SW was advised to call police and make report. then pt went to his room stuffed his mouth with the toilet paper, refused to give it back, also attempted to scratch his neck with foil most likely from the juice container, was dramatic, screaming "kill me, kill me", but gave back foil to the staff. then police arrived to the unit thinking that they came for agitated pt (which was not the case), guns were unloaded and placed in the medication room. Pt was not able to calm down, pt was and required to be medicated and police assisted pt to go to the quiet room, then police left the unit uneventfully, pt placed in restraint by staff. pt got Ativan IM, pt then became tearful, gave the toilet paper to this engineering technical writer then said "Doctor Resendiz, I am so sorry, I didn't want to leave, it was not me, I am so sorry, I have no plan to hurt you or myself or anyone else". pt was observed for another 1-1,5 hours, pt contracted for safety, said that he is ready to go now. Counseling about smoking and alcohol cessation provided at the time of admission pt was provided with prescriptions for all of medications (please see medication reconciliation form) Pt was educated about safety plan in case of worsening of symptoms or in case of suicidal or homicidal ideation call 911 or go to the nearest ER, also was educated to take meds as prescribed and stay away from drugs, pt verbalized understanding. pt was referred to [facility], see SW note for more detailed information. considering the fact pt was acting out this way at the time of discharge, it is obviously manipulative, antisocial behavior. pt did not present this way at the time of admission. treatment team also feels that pt is manipulative, malingering. at the time of discharge pt is more rationale, contracted for safety, pose no imminent danger to self or others. police was notified that pt was d/c from the unit by GUANAKO. 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 Status: Acute (4) Malingering Status: Acute - Final Diagnosis (DSM 5) Condition upon Discharge: FAIR Disposition: HOME/ ROUTINE Prescriptions/Medication Reconciliation: Folic Acid 1 mg PO DAILY #14 tab Mirtazapine [Remeron] 15 mg PO HS #14 tab Multimineral/Multivitamin [Therapeutic-M Tab] 1 tab PO 0800 #14 tab QUEtiapine [SEROquel] 100 mg PO DAILY #14 tab Quetiapine Fumarate [Seroquel] 200 mg PO HS #14 tablet Thiamine HCl 100 mg PO DAILY #14 tablet - Smoking Cessation Smoking Cessation Medication prescribed: No Reason for not providing: pt refused - Antipsychotic Medications Pt discharged on 2 or more routine antipsychotic medications: No
== END 2018-01-02 16:42 | disposition home or self-care (01) | DRG 426 ==
LOC: ED 14:54 → ERH 15:56 → PSYC 16:53
PROVIDERS: ADMIT Psychiatry & Neurology Psychiatry; ATTEND Psychiatry & Neurology Psychiatry
DX: F32.9 Major depressive disorder, single episode, unspecified (principal); F10.10 Alcohol abuse, uncomplicated; F12.10 Cannabis abuse, uncomplicated; F17.210 Nicotine dependence, cigarettes, uncomplicated; F41.9 Anxiety disorder, unspecified; F63.9 Impulse disorder, unspecified; F91.8 Other conduct disorders; Z72.811 Adult antisocial behavior; Z59.0 Homelessness; Z76.5 Malingerer [conscious simulation]; Z79.899 Other long term (current) drug therapy; Z80.1 Family history of malignant neoplasm of trachea, bronchus and lung; Z91.19 Patient's noncompliance with other medical treatment and regimen; Z62.810 Personal history of physical and sexual abuse in childhood